=== PATIENT | male | born 1960 | race African-American/Black ===

== ENCOUNTER 2018-11-20 21:23 | Inpatient (IN) | payer OTHER ==
[~2018-11-20] VITALS: Ht 177.8 cm; Wt 84.6 kg
[2018-11-20 22:21] LABS: Basophils # (auto) 0 uL; Basophils % (auto) 0.8 % (0.0-2.0); Eosinophils # (auto) 0.1 uL; Eosinophils % (auto) 1.9 % (0.0-7.0); Hematocrit 42.5 % (41.0-53.0); Hemoglobin 14.3 g/dL (13.5-17.5); Lymphocytes # (auto) 1.4 uL; Lymphocytes % (auto) 21.5 % (10.0-50.0); Mean Corpuscular Hemoglobin 29.1 pg (28.0-32.0); Mean Corpuscular Hgb Conc. 33.6 g/dL (32.0-36.0); Mean Corpuscular Volume 86.6 fL (80.0-100.0); Monocytes # (auto) 0.4 uL; Monocytes % (auto) 6.2 % (0.0-12.0); Neutrophils # (auto) 4.5 uL; Neutrophils % (auto) 69.6 % (37.0-80.0); Nucleated Red Blood Cells % 0.1 %; Platelet Count (auto) 140 10^3/uL (140-450); Red Blood Cells 4.91 10^6/uL (4.5-5.90); Red Cell Distribution Width 14.7 % (11.8-14.3); White Blood Cell 6.4 10^3/uL (4.4-10.8)
[2018-11-20 22:36] LABS: Albumin 4.1 g/dL (3.4-5.0); Anion Gap 7 (5-15); Blood Urea Nitrogen 14 mg/dL (7-18); Calcium 8.7 mg/dL (8.5-10.1); Carbon Dioxide 27 mmol/L (21-32); Chloride 110 mmol/L (98-107); Glucose 95 mg/dL (74-106); Magnesium 2.4 mg/dL (1.6-2.6); Potassium 4.1 mmol/L (3.5-5.1); Sodium 144 mmol/L (136-145)
[2018-11-20 22:41] LABS: Alanine Aminotransferase 53 U/L (16-61); Alkaline Phosphatase 104 U/L (45-117); Aspartate Aminotransferase 29 U/L (15-37); BUN/Creatinine Ratio 12.7; Bilirubin, Total 0.7 mg/dL (0.2-1.0); GFR African American 88 mL/min; GFR Non-African American 73 mL/min; Total Protein 7.4 g/dL (6.4-8.2)
[2018-11-20] MEDS ORDERED: ASPirin 81 mg TAB PO ONE (22:45)
[2018-11-20] MEDS ORDERED: LORazepam 0.5 MG TAB PO ONE (22:45)
[2018-11-21 01:18] LABS: Urine WBC None Seen /hpf (0 - 3)
[2018-11-21 01:37] LABS: Urine Bacteria NONE SEEN /hpf (None Seen); Urine Blood Negative /uL (Negative); Urine Specific Gravity 1.012 (1.001-1.035)
[2018-11-21] MEDS ORDERED: ACETAMINOPHEN 500 MG TAB PO PRN (01:45)
[2018-11-21] MEDS ORDERED: DOCUSATE SOD 100 MG CAP PO PRN (01:45)
[2018-11-21] MEDS: ONDANSETRON HCL 4 MG/2 ML VIAL IV PRN ×2 (02:04→20:30)
--- NOTE | 2018-11-21 03:33 | NUR ---
Telemetry admit from [facility] LEWIS admitted to Telemetry unit. Patient oriented to MAIRA ROBERSON, primary RN, unit, room 285A, and unit policies regarding patient care. Patient now on continuous telemetry monitoring, tele box #[id number] and telemetry reading on arrival to unit is SB. Patient weighed by bed scale and encouraged to call if they need something. All questions and concerns addressed, patient verbalized understanding. Guards at bedside. Patient not complaining of any pain.
[2018-11-21 03:45] VITALS: BP 138/77
[2018-11-21] MEDS ORDERED: ASPI-404 PO (05:30)
[2018-11-21 05:44] VITALS: BP 138/77
[2018-11-21 06:13] LABS: Basophils # (auto) 0 uL; Basophils % (auto) 0.8 % (0.0-2.0); Eosinophils # (auto) 0.2 uL; Eosinophils % (auto) 2.8 % (0.0-7.0); Hematocrit 40.5 % (41.0-53.0); Hemoglobin 13.7 g/dL (13.5-17.5); Lymphocytes # (auto) 1.2 uL; Lymphocytes % (auto) 20.9 % (10.0-50.0); Mean Corpuscular Hemoglobin 29.4 pg (28.0-32.0); Mean Corpuscular Hgb Conc. 33.9 g/dL (32.0-36.0); Mean Corpuscular Volume 86.6 fL (80.0-100.0); Monocytes # (auto) 0.4 uL; Monocytes % (auto) 6.4 % (0.0-12.0); Neutrophils # (auto) 3.9 uL; Neutrophils % (auto) 69.1 % (37.0-80.0); Nucleated Red Blood Cells % 0.1 %; Platelet Count (auto) 127 10^3/uL (140-450); Red Blood Cells 4.67 10^6/uL (4.5-5.90); Red Cell Distribution Width 14.8 % (11.8-14.3); White Blood Cell 5.7 10^3/uL (4.4-10.8)
[2018-11-21 06:27] LABS: Potassium 3.6 mmol/L (3.5-5.1)
[2018-11-21 06:32] LABS: BUN/Creatinine Ratio 11.5
[2018-11-21 06:33] LABS: Calcium 8.3 mg/dL (8.5-10.1)
--- NOTE | 2018-11-21 08:00 | NUR ---
Opening Shift Note Assumed care of patient, awake and alert. Up to bathroom, ambulatory. No S/S of distress/SOB or pain. Instructed on POC and to call for assist PRN, will continue to monitor for changes Q1hr and PRN.
[2018-11-21 09:00] VITALS: BP 109/64
[2018-11-21] MEDS: ASPirin-EC 81 mg tab PO SCH (09:38)
[2018-11-21] MEDS: PANTOPRAZOLE 40 MG TAB PO SCH (09:38)
[2018-11-21 13:00] VITALS: BP 114/64
[2018-11-21] MEDS ORDERED: HCTZ 25 MG TAB PO ONE (13:30)
--- NOTE | 2018-11-21 14:00 | NUR ---
ECHO Patient getting ECHO done. Will give hctz when they are finished.
[2018-11-21 17:00] VITALS: BP 113/70
--- NOTE | 2018-11-21 19:15 | NUR ---
Opening Shift Note Assumed care of patient, awake and alert. No S/S of distress/SOB or pain. POC was discussed and questions answered. Bed is locked in lowest position with side rails up x2 for safety, call light is within reach and patient encouraged to call if needs anything. Will continue to monitor for changes Q1hr and PRN.
[2018-11-21] MEDS: ATORVASTATIN 20 MG TAB PO SCH (21:29)
[2018-11-21 22:22] VITALS: BP 113/71
--- NOTE | 2018-11-22 04:56 | NUR ---
IV insertion IV access obtained, via clean sterile technique by inserting 22 gauge catheter on the right forearm after 1 attempt. IV secured properly. No trauma to site. Patient tolerated well.
[2018-11-22 05:26] VITALS: BP 103/61
--- NOTE | 2018-11-22 07:58 | NUR ---
Opening Shift Note Assumed care of patient. Upon entering room, patient is awake, calm, and appears to be in no signs or symptoms of distress/shortness of breath. Patient is orientated to person, place, time, and situation. Patient has left lower quadrant abdominal pain 3/10 on adult pain scale but states he does not want any pain medication at this time. Patient has guard at the bedside and has right hand and left ankle cuffed to bed. Patient has one left AC 20 gauge peripheral IV and one left hand 20 gauge peripheral IV. Instructed on today's plan of care and to call for assist PRN, patient verbalized understanding. Will continue to monitor for changes Q1hr and PRN.
[2018-11-22] MEDS ORDERED: ADENOSINE 70 MG in GIVE UN-DILUTED 0 ML IV STA (08:21)
[2018-11-22 09:00] VITALS: BP 110/54
--- NOTE | 2018-11-22 09:24 | NUR ---
Mild Bradycardia Patient's nurse monitoring shows heart rate went to 47 beats per minute. Checked on patient and was relaxed, calm, and watching television. Patient in no signs or symptoms of distress. Patient states he "feels well". Will continue to monitor.
[2018-11-22] MEDS: HCTZ 25 MG TAB PO SCH (09:40)
[2018-11-22] MEDS: PANTOPRAZOLE 40 MG TAB PO SCH (09:40)
[2018-11-22] MEDS: ASPirin-EC 81 mg tab PO SCH (09:41)
[2018-11-22 13:00] VITALS: BP 113/66
[2018-11-22 16:50] VITALS: BP 123/64
--- NOTE | 2018-11-22 19:17 | NUR ---
CLOSING NOTE Endorsed care of patient to NOC RN, Wilda.
[2018-11-22] MEDS: ONDANSETRON HCL 4 MG/2 ML VIAL IV PRN (20:41)
[2018-11-22] MEDS: ATORVASTATIN 20 MG TAB PO SCH (21:35)
[2018-11-22 22:00] VITALS: BP 115/68
[2018-11-23 05:00] VITALS: BP 103/58
--- NOTE | 2018-11-23 08:00 | NUR ---
OPENING NOTE ASSUMED CARE OF PATIENT. PATIENT IS AWWAKE AND ALERT WITH NO S/S OF DISTRESS, SOB. PATIENT C/O ABDOMINAL PAIN 5/10 WILL ADMINISTER PRN PAIN MEDICATION FOR PAIN. PATIENT INSTRUCTED ON POC AND TO CALL FOR ASSISTANCE PRN, VERBALIZED UNDERSTANDING. CALL LIGHT WITHIN REACH, BED IN LOWEST POSITION, SIDERAILS UP X2. WILL CONTINUE TO MONITOR FOR CHANGES Q1H AND PRN.
[2018-11-23 09:00] VITALS: BP 107/54
[2018-11-23] MEDS: HCTZ 25 MG TAB PO SCH (10:00)
[2018-11-23] MEDS: PANTOPRAZOLE 40 MG TAB PO SCH (10:23)
[2018-11-23] MEDS: ASPirin-EC 81 mg tab PO SCH (10:31)
--- NOTE | 2018-11-23 11:33 | NUR ---
PAGED Paged Shanna Christian [employer], per Dr. Roca's request for stress test results. Awaiting call back.
--- NOTE | 2018-11-23 12:54 | NUR ---
AFTER HRS D/C if pt gets discharged after hours, pls call [phone] ex [phone] give report and get pt picked up from this ph #.
[2018-11-23 13:00] VITALS: BP 109/57
[2018-11-23 17:11] VITALS: BP 109/69
--- NOTE | 2018-11-23 19:30 | NUR ---
Opening shift note Patient in bed alert and oriented x 4, verbally coherent, able to make needs known. Patient's respiration even and unlabored, denies pain and discomfort at this time. Plan of care discussed, patient verbalized understanding. 2 guards at bedside. All needs attended, will continue to monitor.
[2018-11-23] MEDS: ATORVASTATIN 20 MG TAB PO SCH (21:49)
[2018-11-23 22:00] VITALS: BP 136/75
[2018-11-24 05:00] VITALS: BP 104/60
--- NOTE | 2018-11-24 08:00 | NUR ---
Opening Shift Note Assumed care of patient, awake and alert. No S/S of distress/SOB. Instructed on POC and to call for assist PRN. Bed in lowest position with siderails up x2 and call light within reach. Will continue to monitor for changes Q1hr and PRN.
[2018-11-24 09:00] VITALS: BP 124/65
[2018-11-24] MEDS: ASPirin-EC 81 mg tab PO SCH (10:07)
[2018-11-24] MEDS: HCTZ 25 MG TAB PO SCH (10:08)
[2018-11-24] MEDS: PANTOPRAZOLE 40 MG TAB PO SCH (10:08)
[2018-11-24] MEDS ORDERED: GABAPENTIN 100 MG CAP PO SCH (12:00)
--- NOTE | 2018-11-24 12:34 | NUR ---
NUTRITION ASSESSMENT NOTES Please refer to link notes of nutrition screen form filed under the intervention section of the plan of care for further details. Est. Needs: 1700 kcal to 2100 kcal (20-25 kcal/kgBW), 68 gms to 85 gms pro (0.8-1.0 gms/kgBW). Will continue to monitor pertinent labs and reassess nutrient need prn Thank you. Addendum: 11/24/18 at [address] Amended: Links added.
[2018-11-24 13:00] VITALS: BP 123/70
--- NOTE | 2018-11-24 14:15 | NUR ---
PAGED Paged Shanna Christian NP regarding stress test results.
== END 2018-11-24 18:47 | DRG 93 ==
LOC: EDBD 21:23 → EEVIPCON 21:28 → ER 21:28 → TELE 21:29 → TELE-WESTW 11-21 03:33
PROVIDERS: ADMIT Nurse Practitioner Family; ATTEND Internal Medicine
DX: G89.29 Other chronic pain (principal); I20.9 Angina pectoris, unspecified; M54.9 Dorsalgia, unspecified; I11.9 Hypertensive heart disease without heart failure; R07.89 Other chest pain; D69.6 Thrombocytopenia, unspecified; Z79.82 Long term (current) use of aspirin; Z79.899 Other long term (current) drug therapy; Z83.3 Family history of diabetes mellitus
CPT/HCPCS: 36415; 71045; 71250; 78452; 80048; 80053; 81001; 83735; 83880; 84439; 84443; 84484; 85025; 85379; 93005; 93017; 93306; 94761; G0378; J0153; J2405